=== PATIENT | female | born 1950 | race Caucasian/White ===

== ENCOUNTER 2016-12-25 08:40 | Emergency (ER) | payer MEDICARE, BC ==
[~2016-12-25] VITALS: Ht 160 cm; Wt 74.0 kg
[~2016-12-25 08:40] MED LIST: ESCI20TA; FENO145T25; HYDR-3612 PO; HYDR-762 PO; LISI20TA11; METF500T4; ONDA4TAB35 PO; SUMA100T9
[2016-12-25 08:42] VITALS: Ht 160 cm; Wt 74.0 kg
--- NOTE | 2016-12-25 09:42 | RADRPT ---
PROCEDURE: XR Wrist. CLINICAL INDICATION: Left wrist pain, fall TECHNIQUE: 4 views of the left wrist were performed. COMPARISON: No prior studies are available for comparison. FINDINGS: There is no acute fracture or dislocation. Alignment is normal. There is mild to moderate first carpometacarpal and triscaphe joint osteoarthrosis. Visualized soft tissues are grossly unremarkable. IMPRESSION: 1. No radiographic evidence of acute osseous abnormality. 2. Mild to moderate first carpometacarpal and triscaphe joint osteoarthrosis. RPTAT: UU .Prabhakar Arcos MD, MD Date Time Electronically viewed and signed by .Prabhakar Arcos MD, on 12/25/2016 09:42 .K/
[2016-12-25] MEDS ORDERED: IBUP-1542 PO (09:48)
--- NOTE | 2016-12-25 09:55 | ERD ---
ER Documentation Chief Complaint Date/Time DATE: 12/25/16 TIME: 09:50 Chief Complaint left wrist pain/injury HPI 66-year-old female complaining of left wrist pain since last night. Patient stated that she fell for while she was walking her dog last night, and brace the fall with both her wrists. She had pain in her left wrist immediately. She was able to take a fist and move her wrist immediately after the fall. The pain had gotten worse since then. She is unable to move the wrists now because of pain. She took the OxyContin at home approximately 2 hours ago. Patient is right-hand dominant. Denies any other injuries from the fall. ROS All systems reviewed and are negative except as per history of present illness. Medications Home Meds Active Scripts Ibuprofen* (Motrin*) 600 Mg Tab, 600 MG PO Q6H Y for PAIN AND OR ELEVATED TEMP, #30 TAB Prov:SKY ROSEN CARDIAC SPECIALIST 12/25/16 Ondansetron Hcl* (Zofran* ODT) 4 mg -ODT Tab.disper, 4 MG PO Q6 Y for NAUSEA AND /OR VOMITING, #30 TAB Prov:PHIL SILVA MD 08/31/15 Hydrocodone Bit-Acetaminophen* ([place]*) 10-325 Mg Tablet, 1 TAB PO Q6 Y for PAIN , #7 TAB Prov:PHIL SILVA MD 08/31/15 Reported Medications Hydrocodone Bit-Acetaminophen* ([place]*) 1 Tab Tab, 1 TAB PO Q4NARC Y 12/21/12 Sumatriptan Succinate* (Imitrex*) 100 Mg Tablet 03/31/12 Escitalopram Oxalate* (Lexapro*) 20 Mg Tablet, DAILY 03/31/12 Fenofibrate Nanocrystallized* ([place]*) 145 Mg Tablet, DAILY 03/31/12 Lisinopril* (Lisinopril*) 20 Mg Tablet, DAILY 03/31/12 Metformin* (Glucophage*) 500 Mg Tab, DAILY 03/31/12 Allergies Allergies: Coded Allergies: Penicillins (Verified Allergy, Unknown, 08/31/15) lisinopril (Verified Allergy, Unknown, 08/31/15) PMhx/Soc History of Surgery: Yes (tubal ligation) Anesthesia Reaction: No Hx Neurological Disorder: No (L5 disc fusion, spinal arthritis, migraine) Hx Respiratory Disorders: No Hx Cardiac Disorders: Yes (htn; cholesterol) Hx Psychiatric Problems: No Hx Miscellaneous Medical Probl: Yes (DIVERTICULITIS) Hx Alcohol Use: No Hx Substance Use: No Hx Tobacco Use: No Smoking Status: Never smoker Physical Exam Vitals Vital Signs Date Time Temp Pulse Resp B/P Pulse Ox O2 Delivery O2 Flow Rate FiO2 12/25/16 08:42 98.2 61 19 148/65 99 Physical Exam General: Patient is well-developed. Awake, alert, and conversant, in no apparent distress Skin: Warm and dry Head: Normocephalic, atraumatic without palpable deformities Eyes: Pupils equal, round, and reactive to light. Extraocular movements intact. No periorbital ecchymosis or step-off Chest: No surface trauma. Nontender without crepitus or deformity. No palpable subcutaneous air. Lungs have good tidal volume, lungs clear to auscultate bilaterally Heart: Regular rate and rhythm. No murmur, rub, or gallop Extremities: No surface trauma. Limited range of left hand and wrist due to pain. No snuffbox tenderness or other point tenderness. Sensation to light touch intact. All peripheral pulses are intact and equal Neuro: Alert and oriented 4, GCS 15, cranial nerves II through XII intact. Motor and sensory exam is nonfocal. Reflexes are symmetric Results 24 hrs PROCEDURE: XR Wrist. CLINICAL INDICATION: Left wrist pain, fall TECHNIQUE: 4 views of the left wrist were performed. COMPARISON: No prior studies are available for comparison. FINDINGS: There is no acute fracture or dislocation. Alignment is normal. There is mild to moderate first carpometacarpal and triscaphe joint osteoarthrosis. Visualized soft tissues are grossly unremarkable. IMPRESSION: 1. No radiographic evidence of acute osseous abnormality. 2. Mild to moderate first carpometacarpal and triscaphe joint osteoarthrosis. RPTAT: UU .Prabhakar Arcos MD, Date Time Electronically viewed and signed by .Prabhakar Arcos MD, on 12/25/2016 09: 42 .K/ CC: SKY ROSEN. CARDIAC SPECIALIST Procedures/MDM 66-year-old female presents to the ED with left wrist pain after falling last night. X-ray of the left wrist is negative for fractures or dislocations. The area of injury was immobilized with a Velcro wrist splint and a sling. Patient was noted to be comfortable and neurovascularly intact both before and after the immobilization. Patient is advised to follow-up with her PCP for repeat x-ray in 1-2 weeks if she does not show any improvement. Patient appears well, stable for discharge and outpatient management. Medical decision making shared with patient and family. Education provided to patient and family. Patient and family expressed understanding of the plan. Medications on discharge: Ibuprofen. Follow-up: Primary care provider in 1 week or return to ED if worse. Disclaimer: Inadvertent spelling and grammatical errors are likely due to EHR/ dictation software use and do not reflect on the overall quality of patient care. Also, please note that the electronic time recorded on this note does not necessarily reflect the actual time of the patient encounter. Departure Diagnosis: Primary Impression: Wrist injury Encounter type: initial encounter Laterality: left Qualified Code: S69.92XA - Injury of left wrist, initial encounter Condition: Stable Patient Instructions: Wrist Sprain Referrals: VEDA LEONARDO MD (PCP) Additional Instructions: Call your primary care doctor TOMORROW for an appointment during the next 1 WEEK.Tell the payroll secretary that you were referred from this facility.See the doctor sooner or return here if your condition worsens before your appointment time. SKY ROSEN NP Dec 25, 2016 09:55
== END 2016-12-25 10:37 | disposition home or self-care (01) ==
LOC: FTE 08:40
DX: S69.92XA Unspecified injury of left wrist, hand and finger(s), initial encounter (principal); I10 Essential (primary) hypertension; W18.39XA Other fall on same level, initial encounter; Y92.9 Unspecified place or not applicable; Z79.84 Long term (current) use of oral hypoglycemic drugs